=== PATIENT | male | born 1985 | race Caucasian/White ===

== ENCOUNTER 2022-12-01 19:07 | Emergency (ER) | payer SELFPAY ==
[2022-12-01 19:13] VITALS: BP 116/74; PULSE 74; RESP 18; TEMP 36.4; O2SAT 96; BMI 22.7
--- NOTE | 2022-12-01 19:16 | ED_ITS ---
HPI - Dental/Oral General Chief complaint: Dental/Oral Stated complaint: Facial swelling/Dental pain Time Seen by Provider: 12/01/22 19:17 Source: patient Mode of arrival: ambulatory Limitations: no limitations History of Present Illness HPI Narrative: 37 yo male here with left lower dental pain/swelling x 2 days. NO fevers, chills. NO diff swallowing/breathing. MD Complaint: tooth pain Related Data Previous Rx's Medication Instructions Recorded clindamycin HCl 150 mg capsule 150 mg PO TID #21 caps 12/01/22 Allergies Allergy/AdvReac Type Severity Reaction Status Date / Time cephalexin Allergy Anaphylaxis Verified 12/01/22 19:11 Penicillins Allergy Anaphylaxis Verified 12/01/22 19:11 Sulfa (Sulfonamide Allergy Anaphylaxis Verified 12/01/22 19:11 Antibiotics) Review of Systems Review of Systems: Yes all other systems are reviewed and are negative Constitutional: Constitutional: Reports no additional constitutional complaints, Denies body ache(s), Denies chills, Denies fever(s), Denies headache(s) and Denies weakness Eyes: Eyes: Reports no additional eye complaints and Denies change in vision ENT: Reports system reviewed and no additional complaints, except as documented, Reports dental pain, Denies dizziness, Denies headache(s), Denies nasal congestion, Denies nasal discharge and Denies neck pain Cardiovascular: Cardiovascular: Reports no additional cardiovascular complaints, Denies chest pain, Denies leg edema and Denies dyspnea Respiratory: Respiratory: Reports no additional respiratory complaints, Denies cough and Denies dyspnea Gastrointestinal: Gastrointestinal: Reports no additional gastrointestinal complaints, Denies abdominal pain, Denies diarrhea, Denies nausea and Denies vomiting Genitourinary: Genitourinary: Denies urinary incontinence Musculoskeletal: Musculoskeletal: Reports no additional musculoskeletal complaints, Denies back pain, Denies arthralgias, Denies joint swelling, Denies neck pain, Denies numbness and Denies tingling Integumentary/Breasts: Skin/Breast: Reports system reviewed and no additional complaints, except as docu and Denies rash Neurologic: Reports system reviewed and no additional complaints, except as documented, Denies Abnormal speech present, Denies dizziness, Denies headache(s), Denies numbness, Denies tingling and Denies weakness [facility] Past Medical History Attestation statement: The following information was validated with the patient. Source: old records reviewed and nursing notes reviewed Physical Exam Vital Signs: Vital Signs: Last Vital Signs Temp 97.6 F 12/01/22 19:13 Pulse 74 12/01/22 19:13 Resp 18 12/01/22 19:13 BP 116/74 12/01/22 19:13 Pulse Ox 96 12/01/22 19:13 O2 Del Method Room Air 12/01/22 19:13 BMI result Body Mass Index 22.7 Const: General: cooperative, healthy appearing, comfortable and no acute distress Orientation/consciousness: patient oriented x3 Limitations: no limitations HEENT: Other: +extensive dental caries There is left lower dental pain/swelling To the left lower molar there is swelling/tenderness at the gum line. No abscess NO trismus Head: Yes normal to inspection Ears: hearing grossly normal bilaterally General nose exam: Normal external nose present Face and sinus: Yes normal facial exam Mouth: Normal oral and palatal mucosa present Throat: Yes posterior oropharynx normal Eyes: General: appearance normal, both eyes and all related structures Pupils: Equal, round and reactive pupils present Neck: Neck: Yes normal visual inspection, Yes full ROM, Yes no lymphadenopathy and Yes no meningeal signs Chest: Chest palpation & inspection: normal inspection of the chest Resp: Effort & Inspection: normal respiratory effort Auscultation: clear to auscultation bilaterally Cardio: Rate: regular rate Rhythm: regular rhythm Peripheral pulses: Peripheral pulses 2+ throughout GI: Inspection: Yes normal to inspection Palpation (GI): Soft to palpation and nontender Auscultation: normal bowel sounds Back/Spine/Pelvis: Thoracic/Lumbar Spine: thoracic and lumbar spine normal to inspection Skin: General skin exam: no rashes or lesions noted Neuro: General: patient oriented x3, no meningeal signs, no focal motor deficits and normal sensation to monofilament Cranial nerves: Yes Equal, round and reactive pupils present Cognition (Neuro): normal cognition Speech: No Abnormal speech present Gait exam (Neuro): Normal gait present Motor exam (neuro): 5/5 motor strength present throughout Extrem: General: Yes normal to inspection Medical Decision Making Medical Decision Making MDM Narrative: 37 yo male here with left lower dental pain/swelling x 2 days Extensice caries on exam with local swelling/ TTP No dental abscess, No trismus or lympahenopathy. +SMOKER Here from [place], with plans to return home and follow-up with his dentist when he returns. Will initiate oral antibiotics, recommend supportive care at home Differential Diagnosis Differential Diagnoses: The differential diagnosis associated with the presentation includes dental infection low concern for dental abscess, ludwigs angina Prescription Management I considered prescription management with: Pain Medication and Antibiotic pain well controlled with motrin/tylenol so no need for further pain management Needs antibiotics for dental infection Discharge Plan Discharge Clinical Impression: Toothache, Cellulitis of face Patient Disposition: Home, Self-Care Instructions: Cellulitis (ED), Toothache (ED) Additional Instructions: Salt water gargles Follow-up with dentist Motrin or tylenol for pain Prescriptions: New clindamycin HCl 150 mg capsule 150 mg PO TID Qty: 21 0RF
== END 2022-12-01 19:25 | disposition home or self-care (01) ==
LOC: HO.ED 19:25
PROVIDERS: Emergency Provider Internal Medicine
DX: K08.89 Other specified disorders of teeth and supporting structures (principal); L03.211 Cellulitis of face
CPT/HCPCS: 99282